=== PATIENT | female | born 1985 | race Caucasian/White ===

== ENCOUNTER 2018-10-16 08:13 | Emergency (ER) | payer OTHER ==
[2018-10-16 08:38] VITALS: BP 127/81
[2018-10-16] MEDS ORDERED: CYCLOBENZAPRINE 10 MG TABLET PO STA (08:50)
[2018-10-16] MEDS ORDERED: MELOXICAM 7.5 MG TABLET PO STA (08:51)
--- NOTE | 2018-10-16 08:53 | ED Physician Documentation ---
History of Present Illness - Stated complaint Stated Complaint: UPPER BACK PX - Chief complaint Chief Complaint: General - History obtained from History obtained from: Patient - History of Present Illness Timing: Today Pain level max: 0 Pain level now: 0 - Additonal information Additional information: 33-year-old female presents to the emergency department with upper back pain that started last night. Worse with movement, palpation and taking a deep breath. Better with Motrin. No fevers. No coughing. No history of similar. No trauma. Does have 2 small children that she lifts regularly Review of Systems Ten Systems: 10 systems reviewed and negative Constitutional: denies: Fever, Chills Respiratory: denies: Cough GI: denies: Nausea, Vomiting, Diarrhea : denies: Now EGA Skin: denies: Rash PD PAST MEDICAL HISTORY - Past Medical History Past Medical History: No - Past Surgical History Past Surgical History: No - Present Medications Home Medications: Ambulatory Orders Medication Instructions Recorded Confirmed Cyclobenzaprine [Flexeril] 10 mg PO TID PRN #20 tablet 10/16/18 Meloxicam [Mobic] 15 mg PO DAILY PRN #20 tablet 10/16/18 - Allergies Allergies/Adverse Reactions: Allergies Allergy/AdvReac Type Severity Reaction Status Date / Time oxycodone AdvReac Nausea Verified 10/16/18 08:38 - Living Situation Living Situation: reports: With family Living Arrangement: reports: At home - Social History Does the pt smoke?: No Does the pt have substance abuse?: No - Family History Family history: reports: Non contributory PD ED PE NORMAL - Vitals Vital signs reviewed: Yes - General General: Alert and oriented X 3, No acute distress, Well developed/nourished - HEENT HEENT: PERRL, Moist mucous membranes - Neck Neck: Supple, no meningeal sign, No bony TTP - Cardiac Cardiac: RRR, Strong equal pulses - Respiratory Respiratory: No respiratory distress, Clear bilaterally - Back Back: No spinal TTP (No midline tenderness to palpation. No step-off or deformity. Paraspinal spasm right greater than left, upper thoracic) - Derm Derm: Warm and dry - Neuro Neuro: Alert and oriented X 3, No motor deficit, No sensory deficit - Psych Psych: Normal mood, Normal affect Results - Vitals Vitals: Vital Signs - 24 hr 10/16/18 08:35 Temperature 36.9 C Heart Rate 63 Respiratory 16 Rate Blood Pressure 127/81 H O2 Saturation 100 Oxygen O2 Source Room air PD MEDICAL DECISION MAKING - ED course Complexity details: considered differential, d/w patient, d/w family ED course: 33-year-old female presents to the emergency department with an upper back strain. Will place on muscle relaxants and anti-inflammatories for home. Will follow up with her PCP for further care. She is well-appearing, nontoxic. No neurological deficits. No fevers. No evidence of pneumothorax. Patient counseled regarding signs and symptoms for which I believe and urgent re- evaluation would be necessary. Patient with good understanding of and agreement to plan and is comfortable going home at this time This document was made in part using voice recognition software. While efforts are made to proofread this document, sound alike and grammatical errors may occur. Departure - Departure Disposition: 01 Home, Self Care Clinical Impression: Upper back strain Qualifiers: Encounter type: initial encounter Qualified Code(s): S29.012A - Strain of muscle and tendon of back wall of thorax, initial encounter Condition: Good Instructions: ED Spasm Back No Trauma Follow-Up: your,doctor in 1 week [Other] Prescriptions: Cyclobenzaprine [Flexeril] 10 mg PO TID PRN #20 tablet PRN Reason: Spasms Meloxicam [Mobic] 15 mg PO DAILY PRN #20 tablet PRN Reason: pain Comments: Return if you worsen. Use the medications as prescribed. This should improve over the next 2-3 days. Follow-up with your doctor for further care. Do not drive or operate heavy machinery while taking the Flexeril.
== END 2018-10-16 09:02 | disposition home or self-care (01) ==
LOC: ED 08:13
DX: S29.012A Strain of muscle and tendon of back wall of thorax, initial encounter (principal)
CPT/HCPCS: 99281; 99283; A9270

== ENCOUNTER 2019-10-10 08:42 | Emergency (ER) | payer OTHER ==
[2019-10-10 08:56] VITALS: BP 122/93
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
[2019-10-10] MEDS ORDERED: ACETAMINOPHEN 325 MG TABLET PO STA (09:13)
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
== END 2019-10-10 11:19 | disposition home or self-care (01) ==
LOC: ED 08:42
DX: S29.012A Strain of muscle and tendon of back wall of thorax, initial encounter (principal); W50.0XXA Accidental hit or strike by another person, initial encounter; Y93.89 Activity, other specified; M62.830 Muscle spasm of back; M41.84 Other forms of scoliosis, thoracic region; M54.2 Cervicalgia
CPT/HCPCS: 72128; 99284; A9270